=== PATIENT | female | born 1995 | race Caucasian/White ===

== ENCOUNTER 2016-12-26 05:20 | Observation (INO) | payer OTHER ==
[~2016-12-26] VITALS: Ht 167.6 cm; Wt 44.4 kg
[2016-12-26 06:12] LABS: HEMATOCRIT 43.7 % (34.6-47.8); WHITE BLOOD COUNT 8.7 x10^3/uL (3.4-10)
[2016-12-26 06:25] LABS: ASPARTATE AMINO TRANSFERASE 18 U/L (15-37); BLOOD UREA NITROGEN 14 mg/dL (7-18)
[2016-12-26 06:32] LABS: DAU SCREEN DISCLAIMER
[2016-12-26 06:38] LABS: ACETAMINOPHEN < 2 mcg/mL (10-30)
[2016-12-26] MEDS ORDERED: PROMETHAZINE 25MG TABLET PO ONE (08:00)
[2016-12-26] MEDS ORDERED: ZIPRASIDONE 20 MG INJ IM ONE (09:30)
[2016-12-26] MEDS ORDERED: LORazepam 2 MG/ML, 1ML IM PRN ×2 (10:30→17:30)
[2016-12-26] MEDS ORDERED: DIPHENHYDRAMINE 50 MG CAPSULE PO PRN ×2 (10:30→17:30)
[2016-12-26] MEDS ORDERED: DOCUSATE 100 MG CAPSULE PO PRN ×2 (10:30→17:30)
[2016-12-26] MEDS ORDERED: ZIPRASIDONE 20 MG INJ IM PRN (10:30)
[2016-12-26] MEDS ORDERED: ZIPRASIDONE 20MG CAPSULE PO PRN ×2 (10:30→17:30)
[2016-12-26] MEDS ORDERED: LORazepam 1MG TABLET PO PRN (10:30)
[2016-12-26] MEDS ORDERED: ONDANSETRON ODT 4 MG PO PRN ×2 (10:30→17:30)
[2016-12-26] MEDS ORDERED: BISACODYL 10 MG SUPP PR PRN ×2 (10:30→17:30)
[2016-12-26] MEDS ORDERED: ACETAMINOPHEN 325 MG TABLET PO PRN ×2 (10:30→17:30)
[2016-12-26] MEDS ORDERED: POLYETHYLENE GLYCOL 17 GM PACKET PO PRN ×2 (10:30→17:30)
[2016-12-26 11:13] VITALS: BP 120/78
[2016-12-26 19:58] VITALS: BP 111/74
[2016-12-26] MEDS ORDERED: QUETIAPINE 100MG TABLET PO SCH ×2 (21:00)
== END 2016-12-26 19:57 ==
LOC: ED 06:04 → EDIP 10:23 → 3E 11:10
PROVIDERS: ADMIT Hospitalist; ATTEND Hospitalist
DX: F30.9 Manic episode, unspecified (principal); F22 Delusional disorders; F31.9 Bipolar disorder, unspecified; F41.9 Anxiety disorder, unspecified
CPT/HCPCS: 36415; 80053; 80307; 80329; 84703; 85025; 99285; G0378; Q0169; G0479; G0480